=== PATIENT | male | born 1925 | race Asian ===

== ENCOUNTER 2016-10-13 11:43 | Emergency (ER) | payer MEDICARE, OTHER ==
[~2016-10-13] VITALS: Ht 175.3 cm; Wt 72.5 kg
[~2016-10-13 11:43] MED LIST: ATOR20TA86 PO; DIGO125T71 PO; FLUT220HFA IH; GEMF600T3 PO; LATA2.5D2 OU; MULT-71 PO; TELM1TAB6 PO; TIMO.5OS OU
[2016-10-13] MEDS ORDERED: SITA1TAB6 (12:03)
[2016-10-13] MEDS ORDERED: METO50 PO (12:03)
[2016-10-13] MEDS ORDERED: SOTA80 PO (12:03)
[2016-10-13 12:11] LABS: GLUCOSE,POINT OF CARE 126 MG/DL (70-110)
[2016-10-13 12:32] VITALS: BP 106/94
== END 2016-10-13 13:01 | disposition home or self-care (01) ==
LOC: MERGE 11:46 → EMS 11:46
DX: S61.052A Open bite of left thumb without damage to nail, initial encounter (principal); E11.9 Type 2 diabetes mellitus without complications; E78.00 Pure hypercholesterolemia, unspecified; I10 Essential (primary) hypertension; I48.91 Unspecified atrial fibrillation; Z79.82 Long term (current) use of aspirin; W53.11XA Bitten by rat, initial encounter; Y93.89 Activity, other specified; Y92.89 Other specified places as the place of occurrence of the external cause; Y99.8 Other external cause status
CPT/HCPCS: 82962; 99282; 99283